=== PATIENT | female | born 1970 | race Caucasian/White ===

== ENCOUNTER 2023-04-16 15:38 | Outpatient (CLI) | payer BC, OTHER, SELFPAY ==
--- NOTE | 2023-04-16 15:30 | MM_ITS ---
WS: [id number] BILATERAL 3D TOMOSYNTHESIS DIGITAL SCREENING MAMMOGRAPHY WITH CAD CLINICAL INFORMATION: SCREENING HISTORY: Screening mammogram. No current complaints. COMPARISON: None. TECHNIQUE: Bilateral CC and MLO views. FINDINGS: The breasts are composed of heterogeneous fibroglandular density tissue, which can limit the detectio n of small underlying mass lesions. Bilateral punctate and clustered calcifications. Nonspecific clustered calcifications outer LEFT breast adjacent to the chest wall. Recommend spot mag nification views in further evaluation. Additional loose cluster of calcifications upper inner RIGHT breast posterior depth. Recommend spot m agnification views of these calcifications also. No other suspicious findings. IMPRESSION: MM/[place] [id number] BI-RADS: 0-Incomplete: Need additional imaging evaluation FOLLOW UP: Need Additional Imaging Recommend bilateral spot magnification views of the above-described calcificati ons
== END 2023-04-16 15:39 | disposition home or self-care (01) ==
LOC: MOBLMAM 15:54
PROVIDERS: PCP Nurse Practitioner Family; Visit Provider Nurse Practitioner Family
DX: Z12.31 Encounter for screening mammogram for malignant neoplasm of breast (principal)
CPT/HCPCS: 77063; 77067